=== PATIENT | female | born 1965 | race Caucasian/White ===

== ENCOUNTER → 2024-01-21 12:29 | Outpatient (REF) | payer OTHER, SELFPAY | LOC: WDC 12:29 | PROVIDERS: ATTENDING PHYSICIAN Obstetrics & Gynecology; FAMILY PHYSICIAN Internal Medicine | DX: Z12.31 Encounter for screening mammogram for malignant neoplasm of breast (principal) | CPT/HCPCS: 77063; 77067 ==

== ENCOUNTER → 2024-10-07 12:39 | Outpatient (REF) | payer OTHER, SELFPAY | LOC: HWRAD 12:39 | PROVIDERS: ATTENDING PHYSICIAN Internal Medicine | DX: E21.0 Primary hyperparathyroidism (principal) | CPT/HCPCS: 77080 ==

== ENCOUNTER → 2025-01-19 07:10 | Outpatient (REF) | payer OTHER, SELFPAY | LOC: HWRAD 07:10 | PROVIDERS: ATTENDING PHYSICIAN Internal Medicine | DX: R10.11 Right upper quadrant pain (principal) | CPT/HCPCS: 76700 ==

== ENCOUNTER → 2025-01-24 13:48 | Outpatient (REF) | payer OTHER, SELFPAY | LOC: WDC 13:48 | PROVIDERS: ATTENDING PHYSICIAN Student in an Organized Health Care Education/Training Program; FAMILY PHYSICIAN Internal Medicine | DX: Z12.31 Encounter for screening mammogram for malignant neoplasm of breast (principal) | CPT/HCPCS: 77063; 77067 ==

== ENCOUNTER 2025-02-13 07:35 | Emergency (ER) | payer OTHER, SELFPAY ==
[2025-02-13 07:38] VITALS: BP 146/76
--- NOTE | 2025-02-13 08:19 | ED.GENMED ---
History of Present Illness
General
Chief Complaint: Abdominal Symptoms
Source: patient
Exam Limitations: none
Time Seen by Provider: 02/13/25 08:05
History of Present Illness
History of Present Illness:
59-year-old female presents complaining of persistent right flank and mid abdominal pain. Pain was severe last evening after getting off of the couch. The pain seems to be positional. No associated urinary symptoms. No chest pain or shortness of
breath. No fevers. The pain is not pleuritic. No vomiting. She saw the family doctor and had an outpatient ultrasound done which showed a renal cyst but otherwise was negative. She tried Advil. No known injury however she does admit to playing
pickle ball about 5 days ago and noticed that was too much bending over.
Past History
Past History
ED Past Medical History: Hypothyroidism and Other (MVP)
ED Past Surgical History: None
Patient has exhibited threatening behavior?: No
Social History
Living: with family
Phy Exam
Physical Exam
Physical Exam:
General: Well-appearing female in no acute respiratory distress HEENT normocephalic atraumatic
Heart: Regular rate and rhythm
Lungs: Clear no wheeze
Abdomen soft nontender nondistended no right upper quadrant tenderness mild to the right mid abdomen.
Musculoskeletal exam: The right paraspinous area of the lumbar spine and lower thoracic area is tender
Skin is warm without rash
Course
Orders/Labs/Results
Orders:
Orders
02/13/25 08:19
CT Abd/pelvis W Iv Cont Urgent
Comment:
Reason For Exam: right flank and mid abdominal pain
02/13/25 08:29
Complete Blood Count/With Diff Urgent
Comprehensive Metabolic Panel Urgent
Lipase Urgent
Urinalysis Reflex To Culture Urgent
Date Specimen was Collected: 02/13/25
Time Specimen was Collected: 08:19
Urine Microscopic Reflex Cult Urgent
Abnormal Lab Results
02/13/25
08:29
MPV 10.8 H fL
(7.4-10.4)
Absolute Lymphs (auto) 0.9 L 10^3/uL
(1.2-3.4)
Neutrophils % 78.7 H %
(42.2-75.2)
Lymphocytes % 15.6 L %
(20.5-51.1)
Glucose 117 H mg/dl
(70-99)
Urine Ketones 2+ A
(Negative)
Ur Occult Blood Reflex 1+ A
(Negative)
Urine Bacteria (Reflex) Few A
(Negative)
Urine Albumin (Reflex) 1+ A
(Neg - Trace)
02/13/25 08:29
02/13/25 08:29
Vital Signs
Initial and Last Documented VS:
Initial Vital Signs
Temp Pulse BP Pulse Ox
97.9 F 72 146/76 98
02/13/25 07:38 02/13/25 07:38 02/13/25 07:38 02/13/25 07:38
Last Documented Vital Signs
Temp Pulse BP Pulse Ox
97.9 F 72 146/76 98
02/13/25 07:38 02/13/25 07:38 02/13/25 07:38 02/13/25 08:21
MDM/Problems Addressed
Differential Diagnosis Includes:
Right flank and mid abdominal pain. Consider musculoskeletal strain versus renal colic versus radiculopathy versus biliary colic. The pain is not pleuritic there is no chest pain or shortness of breath. Do not suspect PE
Check labs and CT scan urinalysis pending
*Pulse Oximetry
SaO2: 98
Oxygen Mode of Delivery: Room air
Patient hypoxic: no
*Critical Care Note
Total Time (30-74mins, 75-104mins- exclusive of procedures): Not Applicable
Update Note
Update Note:
CT negative for acute intra-abdominal process. Suspect musculoskeletal flank pain. Recommended anti-inflammatories warm compresses and Lidoderm. Advise follow-up with family doctor. Stable for discharge
ED Attending Note
-
Portions of this chart may have been created with voice recognition software.� Occasional wrong word or��sound alike� substitutions may have occurred due to the inherent limitations of voice recognition software.
Discharge Plan
Departure
Patient Disposition: Home (Routine Discharge)
Date of Disposition: 02/13/25
Time of Disposition: 10:25
Patient with high blood pressure during this ER visit?: No
Discharge Problem:
Acute flank pain
Instructions: Muscle, joint, and bone pain (DC)
Prescriptions:
No Action
levothyroxine 125 MCG tablet
0.125 meq PO DAILY
Evening [place] Oil
1 tab PO DAILY
Flaxseed Oil
1,500 mg PO DAILY
Multiple Vitamins
1 tab PO DAILY
Vitamin D
2,000 units PO DAILY
Referrals:
Nikia Ward MD [Family Provider, Internal Medicine]
Activity Restrictions/Additional Instructions:
Continue with anti-inflammatories and warm compresses. You can consider using lighted Derm [id number]. If symptoms persist consider physical therapy. Return if worse otherwise
Interventions
Interventions:
*Risk Screen - Suicide Last Done: 02/13/25 07:43
*General Assessment Last Done: 02/13/25 08:33
*Neglect/Abuse Screening Last Done: 02/13/25 07:43
CY-Mbrois-Bjidlyifii Assessment Last Done: 02/13/25 08:33
Discharge Date and Time
Print Language: SOMALI
[2025-02-13 08:38] LABS: Urine Character Clear (Clear)
[2025-02-13 08:52] LABS: Hematocrit 39.6 % (37.0-47.0); Hemoglobin 13.6 g/dL (12.0-16.0); Mean Corp Hgb Conc. 34.3 g/dL (33.0-37.0); Mean Corpuscular Volume 87.6 fL (81.0-99.0); Nucleated Red Blood Cells % 0 %; Platelet Count 192 10^3/uL (130-400); Red Cell Dist. Width 11.9 % (11.5-14.5)
[2025-02-13 08:54] LABS: ALT (SGPT) 19 U/L (0-35); AST (SGOT) 25 U/L (14-36); Albumin 4.3 g/dl (3.5-5.0); Alkaline Phosphatase 60 U/L (38-126); Blood Urea Nitrogen 14 mg/dl (7-17); Calcium 9.6 mg/dl (8.4-10.2); Carbon Dioxide 27 mmol/L (22-30); Chloride 106 mmol/L (98-107); Glucose 117 mg/dl (70-99); Lipase 74 U/L (23-300); Potassium 3.9 mmol/L (3.5-5.1); Sodium 139 mmol/L (135-145); Total Protein 6.5 g/dl (6.3-8.2); eGFR > 60.00
[2025-02-13 09:07] LABS: Urine Red Blood Cell 0-2 /HPF (0-2); Urine White Cell 0-2 /HPF (0-5)
== END 2025-02-13 10:41 | disposition home or self-care (01) ==
LOC: EMR 07:35
PROVIDERS: Physician Assistant; EMERGENCY PHYSICIAN Emergency Medicine; FAMILY PHYSICIAN Internal Medicine
DX: R10.9 Unspecified abdominal pain (principal); E03.9 Hypothyroidism, unspecified; N28.1 Cyst of kidney, acquired
CPT/HCPCS: 99284; 74177; 80053; 81003; 81015; 83690; 85025; Q9967